=== PATIENT | female | born 1960 | race Caucasian/White ===

== ENCOUNTER 2017-03-10 23:11 | Emergency (ER) | payer OTHER ==
[2017-03-10 23:13] VITALS: BP 193/78; PULSE 75; RESP 16; O2SAT 98
--- NOTE | 2017-03-10 23:42 | ED.REPORT ---
HPI-Trauma Minor / Fall Date of Service Mar 10, 2017 ED Provider: Babak Baldwin DO Pt is a 57 year old female with a history of HTN who presents to the ED after getting a needle stick exposure. 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 She has a small puncture wound on her right palm at the base of her thumb. Nursing Notes Stated Complaint: NEEDLE STICK Chief Complaint: General Complaint Nursing Notes Reviewed: Yes Allergies: Coded Allergies: atenolol (Verified Allergy, Unknown, Chest pain, 03/10/17) Uncoded Allergies: IRON INFUSIONS (Allergy, Unknown, Skin peels, 03/10/17) General Time Seen by MD: 23:14 Chief Complaint Other (Needle stick) Hx Obtained From: Patient Arrived By: Walk-in Onset Occurred: 1 - 15 minutes ago Symptom Duration: Since onset Severity: Current: No pain currently Severity: Maximum: No pain Recent Healthcare: No recent doctor visit Similar Sx Previous: No Past Medical History Past Medical History Reports: Hypertension Past Surgical History Arm Smoking History Unknown if Ever Smoker Social History Alcohol Use: Denies alcohol use Drug Use: Denies drug use Ambulatory Status Independent Review of Systems + Needle stick puncture wound Constitutional: Denies: Fever Respiratory: Denies: Non-productive cough, Shortness of breath Complete sys rev & neg: except as marked. Physical Exam Initial Vital Signs Vital Signs (First) Date Time Temp Pulse Resp B/P Pulse Ox O2 Delivery O2 Flow Rate FiO2 03/10/17 23:13 36.7 75 16 193/78 98 Room Air Initial VS: Reviewed Head / Eyes: Normocephalic, PERRL ENT: Conjunctiva normal, No scleral icterus Respiratory: No respiratory distress Cardiovascular: Intact distal pulses Abdomen / GI: Soft, Non-tender Extremities: Vascular intact, Neuro intact Skin: Warm, Dry, No cyanosis Neurologic: Alert, Oriented, Nonfocal Psychiatric: Mood/affect normal, Behavior normal General/Constitutional: Awake, Alert, Cooperative, Not toxic appearing Neck: Atraumatic, Full range of motion Wrist / Hand: Full range of motion, Neurologic intact, Vascular intact Small needle puncture wound in her right palm at the base of the thumb. Interpretation & Diagnostics Lab Results Interpretation Test 03/10/17 23:27 Re-Eval/Medical Decision Med Decision/Clinical Course The puncture site was washed with soap and water. Exposure panel 7 has been drawn. Source blood was tested negative for rapid HIV. Will follow-up with employee health. Declined HIV prophylaxis and this seems reasonable Source of Hx: Old records Re-Evaluation/Progress : Time of Eval: 00:21 Re-Evaluation/Progress Note: Pt rechecked. Informed pt of plan for discharge. Pt understands and agrees with plan for discharge. F/U instructions and RTER warnings given. All questions addressed. Counseled Regarding: Diagnosis, Lab results, When/why to return to ED Discharge & Departure Impression: Primary Impression: Needlestick injury accident with exposure to body fluid Disposition: Home Discharge Condition All VS Reviewed: Yes Condition: Stable Patient Instructions: Needle Stick Injuries (ED) Additional Instructions: Contact the employee health nurse as instructed. Set up a Follow-up evaluation with him or her. Follow-up with your hepatitis B and hepatitis C titers. Basic first aid to the wound. Watch for signs of infection. Pain, redness, swelling or discharge. Return if any of these occur. Scribe Attestation Portions of this note were transcribed by Sis Atkins. I, Dr. Baldwin personally performed the history, physical exam and medical decision-making; I reviewed and confirmed the accuracy of the information in the transcribed note. Signed by: Jaswinder Barry, 03/11/17 and 00:58. Babak Baldwin DO Mar 10, 2017 23:[address] Mar 10, 2017 23:49
== END 2017-03-11 00:30 | disposition home or self-care (01) ==
LOC: SED 23:11
DX: S61.401A Unspecified open wound of right hand, initial encounter (principal); I10 Essential (primary) hypertension; W46.0XXA Contact with hypodermic needle, initial encounter; Y93.89 Activity, other specified; Y92.239 Unspecified place in hospital as the place of occurrence of the external cause; Y99.0 Civilian activity done for income or pay; Z88.8 Allergy status to other drugs, medicaments and biological substances
CPT/HCPCS: 36415; 86706; 87340; 99283; G0433